=== PATIENT | male | born 1975 | race Caucasian/White ===

== ENCOUNTER 2017-01-25 13:37 | Emergency (ER) | payer BC ==
[~2017-01-25] VITALS: Wt 97.9 kg
[2017-01-25] MEDS ORDERED: ONDANSETRON (ODT) 4 MG TAB ODT STA (13:56)
[2017-01-25] MEDS ORDERED: morphine 4 MG/ML VIAL IM STA (13:56)
[2017-01-25] MEDS ORDERED: LIDO20SO19 MM (14:21)
[2017-01-25] MEDS ORDERED: IBUP-1542 PO (14:21)
[2017-01-25] MEDS ORDERED: HYDR-906 PO (14:21)
--- NOTE | 2017-01-25 14:26 | ERD ---
ER Documentation Chief Complaint Chief Complaint SORES ON PALATE X5 DAYS, NO COUGH, NO FEVER HPI 41-year-old male comes in with painful roof of mouth for 5 days. He describes as severe pain, achy, sharp, and not improving with Toradol after he was seen in the emergency department [place] last night. He states that he has been going on for 5 days and is not improving. Patient has no fevers, chills, drooling, trismus, voice changes, difficulty swallowing. He denies dental pain. ROS All systems reviewed and are negative except as per history of present illness. Medications Home Meds Active Scripts Amoxicillin* (Amoxicillin*) 500 Mg Cap, 500 MG PO TID for 7 Days, CAP Prov:JARVIS DUMONT PA-C 01/25/17 Lidocaine (Lidocaine Viscous) 100 Ml Soln, 10 ML MM QID, #100 ML Prov:JARVIS DUMONT PA-C 01/25/17 Ibuprofen* (Motrin*) 600 Mg Tab, 600 MG PO Q6, #30 TAB Prov:JARVIS DUMONT PA-C 01/25/17 Hydrocodone/Acetaminophen (Keller 5-325 Tablet) 1 Each Tablet, 1 TAB PO Q6H Y for PAIN, #10 TAB Prov:JARVIS DUMONT PA-C 01/25/17 Allergies Allergies: Coded Allergies: No Known Allergy (Unverified , 01/25/17) PMhx/Soc History of Surgery: Yes (appy ) Anesthesia Reaction: No Hx Neurological Disorder: No Hx Respiratory Disorders: No Hx Cardiac Disorders: Yes (htn) Hx Psychiatric Problems: No Hx Miscellaneous Medical Probl: No Hx Alcohol Use: Yes (socially ) Hx Substance Use: No Hx Tobacco Use: No Smoking Status: Never smoker Physical Exam Vitals Vital Signs Date Time Temp Pulse Resp B/P Pulse Ox O2 Delivery O2 Flow Rate FiO2 01/25/17 13:41 97.3 81 18 169/106 99 Physical Exam General: Well-developed, well-nourished. The patient appears in no acute distress. HEENT: Head is normocephalic, atraumatic. No scleral icterus. Soft palate the roof of the mouth is erythematous, there are no vesicles, is tender to palpation , no abscess seen. Dentition intact. Oropharynx is clear, tonsils are nonerythematous, there is no exudate, no trismus, no masses seen. Neck: Supple. Nontender. Positive anterior chain cervical lymphadenopathy seen. Lungs: Clear to auscultation. Normal air movement. Heart: Regular rate and rhythm. S1 and S2 are normal. No murmurs, gallops, or rubs. Abdomen: Soft, nontender, nondistended. Bowel sounds are normoactive. Extremities: No clubbing or cyanosis. Normal pulses. Moving extremities x 4. No weakness. Neurologic: Alert and oriented 3. No focal deficits. Skin: Normal turgor. No rash or lesions. Results 24 hrs Current Medications Medications (Trade) Dose Ordered Sig/Nola Route PRN Reason Start Time Stop Time Status Last Admin Dose Admin Ondansetron HCl (Zofran Odt) 4 mg ONCE STAT ODT 01/25/17 13:56 01/25/17 13:58 DC 01/25/17 14:02 Morphine Sulfate (morphine) 4 mg ONCE STAT IM 01/25/17 13:56 01/25/17 13:58 DC 01/25/17 14:03 Procedures/MDM 41-year-old male comes into emergency department with pain in the mouth, most consistent with stomatitis. I suspect a viral infection however the patient's symptoms have been ongoing for 5 days and will be treated for bacterial infection with amoxicillin. He was given morphine as well as Zofran and he actually was able to fall asleep and is resting comfortably. He does not have any evidence of HSV at this time, no vesicles. He does not have any signs of bacterial tracheitis, retropharyngeal abscess, Sunny's angina or dental abscess. Patient's blood pressure was elevated (>120/80) but appears stable without evidence of hypertension emergency or urgency. The patient was counseled about the risks of hypertension and urged to pursue outpatient monitoring and therapy within a week with their primary care physician. Departure Diagnosis: Primary Impression: Sore in mouth Condition: Good Patient Instructions: Stomatitis (Child) JARVIS DUMONT PA-C Jan 25, 2017 14:26
[2017-01-25] MEDS ORDERED: AMOX500C2 PO (14:32)
== END 2017-01-25 14:37 | disposition home or self-care (01) ==
LOC: FTE 13:37
DX: K13.79 Other lesions of oral mucosa (principal); I10 Essential (primary) hypertension
CPT/HCPCS: 96372; 99284; J2270